=== PATIENT | female | born 1940 | race Caucasian/White ===

== ENCOUNTER 2016-10-12 18:47 | Emergency (ER) | payer BC ==
--- NOTE | 2016-10-12 20:39 | DIAGNOSTIC IMAGING REPORT ---
PROCEDURE: XR CHEST 2 VIEW INDICATION: Shortness of breath. Reported history of left lower lobe density or mass (documented). TECHNIQUE: PA and lateral views. COMPARISON: None. FINDINGS: Moderate parenchymal change at the left lung base which could be acute or chronic. Right lung is clear. Heart and mediastinum are normal. Mild dextroscoliosis and moderate degenerative change of the thoracic spine. IMPRESSION: 1. Moderate parenchymal change in the right lung base (acute versus chronic). 2. Otherwise negative chest.
--- NOTE | 2016-10-12 21:34 | ED CLINICAL REPORT ---
Clinical Report - Physicians/Mid Levels [facility] [address] [place] [address] 10/12/2016 18:47 Patient: FARTUN LORENZ Time Seen: 19:13. Arrived- By private vehicle. Historian- patient and family. HISTORY OF PRESENT ILLNESS Chief Complaint: DYSPNEA and BACK PAIN. This started today and is still present. It was gradual in onset and has been waxing/waning. The dyspnea is described as moderate. The dyspnea is worsened by cough and is improved by rest (deep breaths make pain worse). The patient has had a cough and chest pain (left flank area - none now, but complained of this earlier today). No sputum production, wheezing, calf pain or foot swelling. (Pt went to [facility] for c/o left flank pain and sob- clinic sent pt to r/o "blood clot" , pt has lunch cancer and has opted to not have treatment). Similar symptoms previously: Recent medical care: The patient was seen recently at another facility in the emergency department and office. ( Pt seen several weeks at [facility] for [place] - had CT head (neg)). REVIEW OF SYSTEMS The patient has had a hysterectomy. No sore throat, nasal discharge, sinus drainage, nausea or vomiting. No abdominal pain, diarrhea, black stools, bloody stools or headache. No difficulty with urination or skin rash. The patient has had joint pain (mild right buttock / hip area pain). All systems otherwise negative, except as recorded above. PAST HISTORY PROBLEMS: Contusion. Laceration. Head Injury. Fall. Uterine Cancer. Colon Cancer. Normal Pressure Hydrocephalus with cognitive impairment. Lung Cancer - metastatic adenocarcinoma. Hypertension. Hypothyroidism. Syncopal episodes. Prior rib fractures Hyperlipidemia Vit D deficiency Depression SURGERIES: Colon / colectomy Colonoscopy. Thyroid Surgery Hernia Hysterectomy with BSO. Medications: Unable to Obtain. Allergies: Penicillins. Tape. SOCIAL HISTORY Never smoker. Occasional alcohol use. No drug use. Residence: [facility] in [place]. FAMILY HISTORY Other family history (father with pancreatic cancer ()). ADDITIONAL NOTES The nursing notes have been reviewed. PHYSICAL EXAM Vital Signs: 10/12/2016 18:57 BP: 175/88. HR: 98. RR: 24. O2 saturation: 98%. Temp: 99.2 F. Pain level now: 10. Appearance: Alert. No acute distress. Eyes: Eyes normal inspection. No pale conjunctivae or scleral icterus. ENT: Pharynx normal. Uvula midline. Neck: Normal inspection. No jugular venous distention. Neck supple. CVS: Normal heart rate and rhythm. Heart sounds normal. Pulses normal. Respiratory: No respiratory distress. Mild rales in the left mid-lung. No decreased air movement, prolonged expiration, splinting or wheezes. Abdomen: Soft and nontender. No guarding or rebound tenderness. Back: Normal inspection. Skin: Skin warm and dry. Normal skin color. Normal skin turgor. Extremities: Extremities exhibit normal ROM. No calf tenderness. No lower extremity edema. Neuro: No motor deficit. LABS, X-RAYS, AND EKG EKG: EKG time: (19:27). Normal sinus rhythm. Rate: 100. Normal P waves. Normal DORINDA. Nondiagnostic Q waves in lead III. LVH. Non-specific ST segment / T wave abnormalities. The study has been interpreted contemporaneously by me. The EKG appears to be a good tracing. Rhythm Strip #1: Normal sinus rhythm. Regular rhythm. Narrow QRS complexes. No ectopy. Chest X-ray: Medium-sized, left-sided mass present. Consistent with tumor. Scoliosis present. No pneumothorax, pleural effusion or vascular congestion. Views: PA and lateral. Technique: good. The X-rays were interpreted contemporaneously by me. Laboratory Tests: UA-Culture if indicated: (TEE: 10/12/2016 19:50) ( MsgRcvd 10/12/2016 21:10) Final results Test Result Flag Units (Reference) URINE COLOR YELLOW URINE APPEARANCE CLEAR URINE GLUCOSE NEGATIVE (NEGATIVE) URINE BILIRUBIN NEGATIVE (NEGATIVE) URINE KETONE NEGATIVE (NEGATIVE) URINE SPECIFIC GRAVITY 1.020 (1.010-1.030) URINE PH 6.0 (5.0-8.0) URINE PROTEIN NEGATIVE (NEGATIVE) URINE UROBILINOGEN 0.2 EU/dL (0.2-1.0) URINE NITRITE NEGATIVE (NEGATIVE) URINE BLOOD NEGATIVE (NEGATIVE) URINE LEUK ESTERASE NEGATIVE (NEGATIVE) URINE RBC NONE SEEN rbc/hpf (0-1) URINE WBC 0-1 wbc/hpf (0-1) URINE EPITHELIAL CELLS 0-1 EPI/hpf (0-5) URINE BACTERIA NONE SEEN (NONE SEEN) URINE COMMENT CULT NOT INDICATED URINE CULTURES ARE SET-UP BASED ON THE FOLLOWING CRITERIA:POSITIVE NITRITEPOSITIVE LEUKOCYTE ESTERASEGREATER THAN 10 WHITE BLOOD CELLSMODERATE (2+) OR GREATER BACTERIA CBC w Diff: (TEE: 10/12/2016 19:50) ( [facility] 10/12/2016 20:12) Final results Test Result Flag Units (Reference) WHITE BLOOD COUNT 13.1 H K/uL (4.5-11.5) RED BLOOD COUNT 3.98 L M/uL (4.00-5.20) HEMOGLOBIN 12.2 gm/dL (12.0-16.0) HEMATOCRIT 37.0 % (36.0-46.0) MEAN CELL VOLUME 93 fL (80-100) MEAN CORPUSCULAR HGB 31 pg (26-34) MEAN CORPUSCULAR HGB CONC 33 g/dL (31-37) RED CELL DISTRIBUTION WIDTH 19.5 H % (11.6-14.8) PLATELET COUNT 276 K/uL (150-400) NEUTROPHIL % 81.7 H % (50-75) LYMPH % 11.9 L % (25-40) MONO % 5.1 % (3-14) EOSINOPHIL % 1.0 % (0-4) BASOPHIL % 0.3 % (0-2) PT with INR: (TEE: 10/12/2016 19:50) ( [facility] 10/12/2016 20:26) Final results Test Result Flag Units (Reference) INR 1.0 (0.8-1.2) Low Intensity Therapy: INR 1.5-2.0 PT range 18.5-23.1Mod.Intensity Therapy: INR 2.0-3.0 PT range 23.1-31.5High Intensity Therapy: INR 2.5-3.5 PT range 27.4-35.5High Intensity Therapy 2: INR 3.0-4.0 PT range 31.5-39.3 [id number]: (TEE: 10/12/2016 19:50) ( MsgRcvd 10/12/2016 20:47) Final results Test Result Flag Units (Reference) D-DIMER QUANTITATIVE 7.23 *H ug/mLFEU (0.27-0.52) CRITICAL RESULTS CALLEDCalled to DR. LUNA 10/12/162045Were 2 patient identifiers used? YWas the result read back? YThe primary value of this quantitative assay relates toits negative predictive value (i.e. exclusion) of pulmonaryembolism/deep vein thrombosis/DIC.Elevated levels of d-dimer may also occur with:, age, cancer, inflammation, liver disease,post-op, infection, hematoma, coronary disease, peripheralarteriopathy, bleeding disorders and thrombolytic treatment.Results should be correlated with other clinical andradiological data.Testing Methodology: Latex Immunoassay Urine Drug Screen: (TEE: 10/12/2016 19:50) ( MsgRcvd 10/12/2016 20:27) Final results Test Result Flag Units (Reference) AMPHETAMINE/METHAMPHETAMINE NEGATIVE (NEGATIVE) BARBITURATE NEGATIVE (NEGATIVE) BENZODIAZEPINE NEGATIVE (NEGATIVE) CANNABINOID NEGATIVE (NEGATIVE) COCAINE NEGATIVE (NEGATIVE) ECSTASY NEGATIVE (NEGATIVE) METHADONE NEGATIVE (NEGATIVE) OPIATE NEGATIVE (NEGATIVE) The urine drug screen is a qualitative screening test fordrug overdose and abuse. All screen results should beconsidered as presumptive.Drugs screened for are as follows:BenzodiazepinesCocaineAmphetamines/MetamphetaminesTHC (Tetrahydrocannabinol)OpiatesBarbituratesEcstasyMethadonePositive results are unconfirmed. For confirmation, notifythe lab for the specimen to be sent to the reference lab.All confirmations must be performed by a differentmethodology.The ingestion of natural herbal and plant productscontaining Ephedra/Ephedra metabolites can produce in urineone or more substances capable of cross reacting withamphetamine/methamphetamine immunoassays. These testsprovide a preliminary result only. A more specificalternative chemical method must be used to obtain aconfirmed analytical result. BNP: (TEE: 10/12/2016 19:50) ( [facility] 10/12/2016 20:35) Final results Test Result Flag Units (Reference) B-TYPE NATRIURETIC PEPTIDE 30.3 pg/ml (5-100) Lipase: (TEE: 10/12/2016 19:50) ( [facility] 10/12/2016 20:34) Final results Test Result Flag Units (Reference) LIPASE 97 U/L (73-393) AMYLASE 25 U/L (25-115) THYROID STIMULATING HORMONE 0.891 uIU/mL (0.30-3.74) CHEM 13 PANEL: (TEE: 10/12/2016 19:50) ( [facility] 10/12/2016 20:27) Final results Test Result Flag Units (Reference) GLUCOSE 152 H mg/dL (70-110) BUN 18 mg/dL (7-18) CREATININE 0.8 mg/dL (0.6-1.3) Estimated GFR >60 mL/min Estimated GFR- >60 mL/min Note: Persistent reduction over 3 months in eGFR<60 mL/min/1.73 m2 defines CKD. Patients with eGFR values>=60 mL/min/1.73 m2 may also have CKD if evidence ofpersistent proteinuria. Additional information may be foundat www.kidney.org. SODIUM 133 L mmol/L (136-145) POTASSIUM 4.4 mmol/L (3.5-5.1) CHLORIDE 102 mmol/L (98-107) CARBON DIOXIDE 31 mmol/L (21-32) CALCIUM 10.1 mg/dL (8.5-10.1) TOTAL PROTEIN 7.4 g/dL (6.4-8.2) ALBUMIN 3.6 g/dL (3.3-5.0) BILIRUBIN, TOTAL 0.4 mg/dL (0.0-1.0) ALKALINE PHOSPHATASE 126 H U/L (46-116) AST (SGOT) 35 U/L (15-37) ALT (SGPT) 19 U/L (12-78) MAGNESIUM 1.5 L mg/dL (1.8-2.4) CPK 40 U/L (24-260) TROPONIN I <0.05 L ng/mL (0.00-1.5) TROPONIN REFERENCE RANGE:<0.1 NEGATIVE0.1-1.5 INDETERMINANT>1.5 POSITIVE . Pulse Oximetry: 10/12/2016 18:57 O2 saturation: 98%. (FIO2 - room air). Interpretation: normal. PROGRESS AND PROCEDURES Course of Care: Pt has metastatic cancer and wishes palliative care only. After long discussion with family, we will hold CTPA as the result will not change our management - family does not want anticoagulants (prior bleeding from the tumor with hemoptysis) and frequent falls. She has been completely asymptomatic in the ED. [facility] the CXR today [facility], the lesion in the LLL is very likely unchanged. The elevated d-dimer is likely secondary to right thigh hematoma, chronic cancer and advanced age - although not completely ruled out, PE is less likely. She will likely have pain in the area of the tumor going forward. Patient/family counseled. Old ED records reviewed. (records from [facility] ED, [facility] ED / in patient and [facility] reviewed). Disposition: Discharged. Condition: stable and improved. CLINICAL IMPRESSION Chronic dementia (secondary to Normal Pressure Hydrocephalus). No behavioral disturbance. Metastatic, advanced left lower lobe lung cancer. Essential hypertension. Mild hypomagnesemia. Mild hyponatremia Contusion to the left thigh. INSTRUCTIONS Drink plenty of fluids. Warnings: Further evaluation is necessary. It is very important to follow up with a physician. CONTROLLED SUBSTANCE WARNINGS. GENERAL WARNINGS: Return or contact your physician immediately if your condition worsens or changes unexpectedly, if not improving as expected, or if other problems arise. Prescription Medications: Hydrocodone/APAP 5mg/325mg: take 1 to 2 orally every 6 hours as needed for pain. Dispense fifteen (15). No refills. Follow-up: Screening today revealed the patient's blood pressure to be in the hypertensive range. The patient should follow up with a primary care provider for blood pressure management. (Electronically signed by Artis Luna DO 10/13/2016 9:00)
--- NOTE | 2016-10-12 21:34 | ED CLINICAL REPORT ---
Clinical Report - Physicians/Mid Levels [facility] [address] [place] [address] 10/12/2016 18:47 Patient: FARTUN LORENZ Time Seen: 19:13. Arrived- By private vehicle. Historian- patient and family. HISTORY OF PRESENT ILLNESS Chief Complaint: DYSPNEA and BACK PAIN. This started today and is still present. It was gradual in onset and has been waxing/waning. The dyspnea is described as moderate. The dyspnea is worsened by cough and is improved by rest (deep breaths make pain worse). The patient has had a cough and chest pain (left flank area - none now, but complained of this earlier today). No sputum production, wheezing, calf pain or foot swelling. (Pt went to [facility] ([facility]) for c/o left flank pain and sob- clinic sent pt to r/o "blood clot" , pt has lunch cancer and has opted to not have treatment). Similar symptoms previously: Recent medical care: The patient was seen recently at another facility in the emergency department and office. ( Pt seen [place] weeks [place] [facility] [place] - had CT head (neg)). REVIEW OF SYSTEMS The patient has had a hysterectomy. No sore throat, nasal discharge, sinus drainage, nausea or vomiting. No abdominal pain, diarrhea, black stools, bloody stools or headache. No difficulty with urination or skin rash. The patient has had joint pain (mild right buttock / hip area pain). All systems otherwise negative, except as recorded above. PAST HISTORY PROBLEMS: Contusion. Laceration. Head Injury. Fall. Uterine Cancer. Colon Cancer. Normal Pressure Hydrocephalus with cognitive impairment. Lung Cancer - metastatic adenocarcinoma. Hypertension. Hypothyroidism. Syncopal episodes. Prior rib fractures Hyperlipidemia Vit D deficiency Depression SURGERIES: Colon / colectomy Colonoscopy. Thyroid Surgery Hernia Hysterectomy with BSO. Medications: Unable to Obtain. Allergies: Penicillins. Tape. SOCIAL HISTORY Never smoker. Occasional alcohol use. No drug use. Residence: [facility] in [place]. FAMILY HISTORY Other family history (father with pancreatic cancer ()). ADDITIONAL NOTES The nursing notes have been reviewed. PHYSICAL EXAM Vital Signs: 10/12/2016 18:57 BP: 175/88. HR: 98. RR: 24. O2 saturation: 98%. Temp: 99.2 F. Pain level now: 10. Appearance: Alert. No acute distress. Eyes: Eyes normal inspection. No pale conjunctivae or scleral icterus. ENT: Pharynx normal. Uvula midline. Neck: Normal inspection. No jugular venous distention. Neck supple. CVS: Normal heart rate and rhythm. Heart sounds normal. Pulses normal. Respiratory: No respiratory distress. Mild rales in the left mid-lung. No decreased air movement, prolonged expiration, splinting or wheezes. Abdomen: Soft and nontender. No guarding or rebound tenderness. Back: Normal inspection. Skin: Skin warm and dry. Normal skin color. Normal skin turgor. Extremities: Extremities exhibit normal ROM. No calf tenderness. No lower extremity edema. Neuro: No motor deficit. LABS, X-RAYS, AND EKG EKG: EKG time: (19:27). Normal sinus rhythm. Rate: 100. Normal P waves. Normal DORINDA. Nondiagnostic Q waves in lead III. LVH. Non-specific ST segment / T wave abnormalities. The study has been interpreted contemporaneously by me. The EKG appears to be a good tracing. Rhythm Strip #1: Normal sinus rhythm. Regular rhythm. Narrow QRS complexes. No ectopy. Chest X-ray: Medium-sized, left-sided mass present. Consistent with tumor. Scoliosis present. No pneumothorax, pleural effusion or vascular congestion. Views: PA and lateral. Technique: good. The X-rays were interpreted contemporaneously by me. Laboratory Tests: UA-Culture if indicated: (TEE: 10/12/2016 19:50) ( MsgRcvd 10/12/2016 21:10) Final results Test Result Flag Units (Reference) URINE COLOR YELLOW URINE APPEARANCE CLEAR URINE GLUCOSE NEGATIVE (NEGATIVE) URINE BILIRUBIN NEGATIVE (NEGATIVE) URINE KETONE NEGATIVE (NEGATIVE) URINE SPECIFIC GRAVITY 1.020 (1.010-1.030) URINE PH 6.0 (5.0-8.0) URINE PROTEIN NEGATIVE (NEGATIVE) URINE UROBILINOGEN 0.2 EU/dL (0.2-1.0) URINE NITRITE NEGATIVE (NEGATIVE) URINE BLOOD NEGATIVE (NEGATIVE) URINE LEUK ESTERASE NEGATIVE (NEGATIVE) URINE RBC NONE SEEN rbc/hpf (0-1) URINE WBC 0-1 wbc/hpf (0-1) URINE EPITHELIAL CELLS 0-1 EPI/hpf (0-5) URINE BACTERIA NONE SEEN (NONE SEEN) URINE COMMENT CULT NOT INDICATED URINE CULTURES ARE SET-UP BASED ON THE FOLLOWING CRITERIA:POSITIVE NITRITEPOSITIVE LEUKOCYTE ESTERASEGREATER THAN 10 WHITE BLOOD CELLSMODERATE (2+) OR GREATER BACTERIA CBC w Diff: (TEE: 10/12/2016 19:50) ( [facility] 10/12/2016 20:12) Final results Test Result Flag Units (Reference) WHITE BLOOD COUNT 13.1 H K/uL (4.5-11.5) RED BLOOD COUNT 3.98 L M/uL (4.00-5.20) HEMOGLOBIN 12.2 gm/dL (12.0-16.0) HEMATOCRIT 37.0 % (36.0-46.0) MEAN CELL VOLUME 93 fL (80-100) MEAN CORPUSCULAR HGB 31 pg (26-34) MEAN CORPUSCULAR HGB CONC 33 g/dL (31-37) RED CELL DISTRIBUTION WIDTH 19.5 H % (11.6-14.8) PLATELET COUNT 276 K/uL (150-400) NEUTROPHIL % 81.7 H % (50-75) LYMPH % 11.9 L % (25-40) MONO % 5.1 % (3-14) EOSINOPHIL % 1.0 % (0-4) BASOPHIL % 0.3 % (0-2) PT with INR: (TEE: 10/12/2016 19:50) ( [facility] 10/12/2016 20:26) Final results Test Result Flag Units (Reference) INR 1.0 (0.8-1.2) Low Intensity Therapy: INR 1.5-2.0 PT range 18.5-23.1Mod.Intensity Therapy: INR 2.0-3.0 PT range 23.1-31.5High Intensity Therapy: INR 2.5-3.5 PT range 27.4-35.5High Intensity Therapy 2: INR 3.0-4.0 PT range 31.5-39.3 [id number]: (TEE: 10/12/2016 19:50) ( MsgRcvd 10/12/2016 20:47) Final results Test Result Flag Units (Reference) D-DIMER QUANTITATIVE 7.23 *H ug/mLFEU (0.27-0.52) CRITICAL RESULTS CALLEDCalled to DR. LUNA 10/12/162045Were 2 patient identifiers used? YWas the result read back? YThe primary value of this quantitative assay relates toits negative predictive value (i.e. exclusion) of pulmonaryembolism/deep vein thrombosis/DIC.Elevated levels of d-dimer may also occur with:, age, cancer, inflammation, liver disease,post-op, infection, hematoma, coronary disease, peripheralarteriopathy, bleeding disorders and thrombolytic treatment.Results should be correlated with other clinical andradiological data.Testing Methodology: Latex Immunoassay Urine Drug Screen: (TEE: 10/12/2016 19:50) ( MsgRcvd 10/12/2016 20:27) Final results Test Result Flag Units (Reference) AMPHETAMINE/METHAMPHETAMINE NEGATIVE (NEGATIVE) BARBITURATE NEGATIVE (NEGATIVE) BENZODIAZEPINE NEGATIVE (NEGATIVE) CANNABINOID NEGATIVE (NEGATIVE) COCAINE NEGATIVE (NEGATIVE) ECSTASY NEGATIVE (NEGATIVE) METHADONE NEGATIVE (NEGATIVE) OPIATE NEGATIVE (NEGATIVE) The urine drug screen is a qualitative screening test fordrug overdose and abuse. All screen results should beconsidered as presumptive.Drugs screened for are as follows:BenzodiazepinesCocaineAmphetamines/MetamphetaminesTHC (Tetrahydrocannabinol)OpiatesBarbituratesEcstasyMethadonePositive results are unconfirmed. For confirmation, notifythe lab for the specimen to be sent to the reference lab.All confirmations must be performed by a differentmethodology.The ingestion of natural herbal and plant productscontaining Ephedra/Ephedra metabolites can produce in urineone or more substances capable of cross reacting withamphetamine/methamphetamine immunoassays. These testsprovide a preliminary result only. A more specificalternative chemical method must be used to obtain aconfirmed analytical result. BNP: (TEE: 10/12/2016 19:50) ( [facility] 10/12/2016 20:35) Final results Test Result Flag Units (Reference) B-TYPE NATRIURETIC PEPTIDE 30.3 pg/ml (5-100) Lipase: (TEE: 10/12/2016 19:50) ( [facility] 10/12/2016 20:34) Final results Test Result Flag Units (Reference) LIPASE 97 U/L (73-393) AMYLASE 25 U/L (25-115) THYROID STIMULATING HORMONE 0.891 uIU/mL (0.30-3.74) CHEM 13 PANEL: (TEE: 10/12/2016 19:50) ( [facility] 10/12/2016 20:27) Final results Test Result Flag Units (Reference) GLUCOSE 152 H mg/dL (70-110) BUN 18 mg/dL (7-18) CREATININE 0.8 mg/dL (0.6-1.3) Estimated GFR >60 mL/min Estimated GFR- >60 mL/min Note: Persistent reduction over 3 months in eGFR<60 mL/min/1.73 m2 defines CKD. Patients with eGFR values>=60 mL/min/1.73 m2 may also have CKD if evidence ofpersistent proteinuria. Additional information may be foundat [email or web address].org. SODIUM 133 L mmol/L (136-145) POTASSIUM 4.4 mmol/L (3.5-5.1) CHLORIDE 102 mmol/L (98-107) CARBON DIOXIDE 31 mmol/L (21-32) CALCIUM 10.1 mg/dL (8.5-10.1) TOTAL PROTEIN 7.4 g/dL (6.4-8.2) ALBUMIN 3.6 g/dL (3.3-5.0) BILIRUBIN, TOTAL 0.4 mg/dL (0.0-1.0) ALKALINE PHOSPHATASE 126 H U/L (46-116) AST (SGOT) 35 U/L (15-37) ALT (SGPT) 19 U/L (12-78) MAGNESIUM 1.5 L mg/dL (1.8-2.4) CPK 40 U/L (24-260) TROPONIN I <0.05 L ng/mL (0.00-1.5) TROPONIN REFERENCE RANGE:<0.1 NEGATIVE0.1-1.5 INDETERMINANT>1.5 POSITIVE . Pulse Oximetry: 10/12/2016 18:57 O2 saturation: 98%. (FIO2 - room air). Interpretation: normal. PROGRESS AND PROCEDURES Course of Care: Pt has metastatic cancer and wishes palliative care only. After long discussion with family, we will hold CTPA as the result will not change our management - family does not want anticoagulants (prior bleeding from the tumor with hemoptysis) and frequent falls. She has been completely asymptomatic in the ED. Comparing the CXR today [facility], the lesion in the LLL is very likely unchanged. The elevated d-dimer is likely secondary to right thigh hematoma, chronic cancer and advanced age - although not completely ruled out, PE is less likely. She will likely have pain in the area of the tumor going forward. Patient/family counseled. Old ED records reviewed. ([facility] from [facility], [facility] / in patient and [facility] reviewed). Disposition: Discharged. Condition: stable and improved. CLINICAL IMPRESSION Chronic dementia (secondary to Normal Pressure Hydrocephalus). No behavioral disturbance. Metastatic, advanced left lower lobe lung cancer. Essential hypertension. Mild hypomagnesemia. Mild hyponatremia Contusion to the left thigh. INSTRUCTIONS Drink plenty of fluids. Warnings: Further evaluation is necessary. It is very important to follow up with a physician. CONTROLLED SUBSTANCE WARNINGS. GENERAL WARNINGS: Return or contact your physician immediately if your condition worsens or changes unexpectedly, if not improving as expected, or if other problems arise. Prescription Medications: Hydrocodone/APAP 5mg/325mg: take 1 to 2 orally every 6 hours as needed for pain. Dispense fifteen (15). No refills. Follow-up: Screening today revealed the patient's blood pressure to be in the hypertensive range. The patient should follow up with a primary care provider for blood pressure management. (Electronically signed by Artis Luna DO 10/13/2016 9:00)
--- NOTE | 2016-10-12 21:34 | ED NURSING NOTES ---
Clinical Report - Nurses [facility] [address] [place] [address] 10/12/2016 18:47 Patient: FARTUN LORENZ TRIAGE Triage time 18:57 Oct 12 2016. Chief Complaint: SHORTNESS OF BREATH and DIFFICULTY BREATHING and COUGH (pt went to 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 Alert. No acute distress. SEPSIS SCREEN: Sepsis Screen. Infection suspected/documented. --19:08 Jonatan Elizabeth R.N. 18:57 10/12/16. BP: 175/88. HR: 98. RR: 24. O2 saturation: 98%. Temp: 99.2 F. Pain level now: 11/20. --19:08 Jonatan Elizabeth R.N. Weight: 81.6 kg stated. Height/Length: 64 inches Per Patient. BMI: 30.9. --18:58 Jonatan Elizabeth R.N. Medications Unable to Obtain. --19:05 Jonatan Elizabeth R.N. Allergies Penicillins. --19:04 Jonatan Elizabeth R.N. Tape. --19:04 Jonatan Elizabeth R.N. History Arrived by private vehicle. Historian: patient and family. Accompanied by family. The patient has had a cough and wheezing. 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 (pt took ibuprofen "this afternoon I think"). PAST MEDICAL HX: Immunizations: up-to-date. SOCIAL HX: Never smoker. Occasional alcohol use. No drug use. No infectious disease exposure. ABUSE ASSESSMENT: No report of abuse. SELF HARM ASSESSMENT: A self harm assessment was performed. The patient answered "no" to the question "Have you recently felt down, depressed, or hopeless?", "Have you noticed less interest or pleasure in doing things?", "Do you have thoughts of harming or killing yourself?", "Are you here because you tried to hurt yourself?", "Have you ever tried to hurt yourself before today?", "Have you recently had thoughts about harming or killing others?" and "Do you have any dangerous items in your possession?". NUTRITIONAL RISK ASSESSMENT: The nutritional risk assessment revealed no deficiencies. FALL RISK ASSESSMENT: Fall risk assessment completed. Risk factors identified include patient age greater than 65 years and impairment of mobility. Fall interventions initiated. Side rails up x2. Brakes on Bed in low position. Patient identified as a fall risk by ID band. Family at bedside. Call light in reach of patient. Instructed not to get up without assistance. FUNCTIONAL ASSESSMENT: Functional assessment performed: uses walker. SKIN INTEGRITY ASSESSMENT: Skin integrity risk assessment completed. No skin integrity risk identified. --19:08 Jonatan Elizabeth R.N. PROBLEMS: Contusion. Laceration. Head Injury. Fall. Uterine Cancer. Colon Cancer. Hydrocephalus. Lung Cancer. Hypertension. Hypothyroidism. --19: Jonatan Elizabeth R.N. ADDITIONAL SURGERIES: Colon. Thyroid Surgery. --19:05 Jonatan Elizabeth R.N. Interventions ID and allergy band on patient. --19:08 Jonatan Elizabeth R.N. PHYSICAL ASSESSMENT Ambulatory to room. Patient gowned. GENERAL / NEURO / PSYCH: Alert. Oriented X 4. Appears in no acute distress. HEENT: Mucous membranes are pink. RESPIRATORY: The patient can speak in full sentences. Nonproductive cough. Chest nontender. CVS: Capillary refill less than 2 seconds. SKIN: Skin is warm and dry. Normal skin turgor. --19: Jonatan Elizabeth R.N. NURSING PROGRESS NOTES Pulse oximeter and NIBP monitor placed on patient. Patient gowned. Reassurance given. Two patient identifiers checked. Call light placed in reach. Side rails up x 2. Bed placed in lowest position. Brakes of bed on. Patient ready for evaluation- chart flagged. Patient waiting for evaluation. --19: Jonatan Elizabeth R.N. EKG time: (1926). EKG was ordered, performed by a tech and shown to the ED physician. --19:30 Miguel Vazquez, ER Market Research Assistant 20:06 10/12/2016 Site #1 started via IV in the right antecubital space with an 20g angiocath; two attempts. Blood drawn: rainbow set. Labeled in the presence of the patient and sent to the lab. Saline lock flushed with saline. --20:21 Jonatan Elizabeth R.N. In/out catheterization. During procedure hand hygiene observed and sterile equipment and aseptic technique used. Return of yellow-colored cloudy urine. She tolerated procedure well. Two patient identifiers checked. Call light placed in reach. Side rails up x 2. Bed placed in lowest position. Brakes of bed on. --20:23 Jonatan Elizabeth R.N. 20:13 10/12/2016 Started bag #1 1000 mL IV Fluids IV NS (Saline); at 500 mL/hr via site #1 via IV pump. Allergies verified and confirmed 5 rights. IV patency established. IV site checked: no pain, redness, or swelling. IV flushed thoroughly pre- and post-medication administration. --20:24 Jonatan Elizabeth R.N. 20:38 10/12/16. ( Patient went to have scan done, pumped DC'd at that time and now restarted). --20:38 Fernanda Ryder R.N. 20:39 10/12/16. ( IV fluids reinitiated). --20:39 Fernanda Ryder R.N. 20:30 10/12/16. BP: 133/57 (regular adult cuff) taken on the left arm, via an automated monitor, while lying. HR: 92. RR: 16. O2 saturation: 100% on room air. Pain level now: 0/10. --20:48 Kathe Larsen R.N. Cardiac rhythm: normal sinus rhythm. strip cutting machine operator, pulse oximeter and NIBP monitor placed on patient. Reassurance given. Reassessment after fluids administered. She is calm and resting quietly. Overall patient status is the same- she states feels better. RESPIRATORY: Denies difficulty breathing. CVS: Denies chest pain. Cardiac rhythm: normal sinus rhythm. Two patient identifiers checked. Call light placed in reach. Side rails up. Bed placed in lowest position. Brakes of bed on. --20:48 Kathe Larsen R.N. ( family returned to pts room, MD notified. IV bolus complete, rated decreased to 250ml/hr as ordered.). --21:09 Jonatan Elizabeth R.N. 21:09 10/12/16. BP: 157/61. HR: 96. RR: 19. O2 saturation: 95%. Pain level now: 11/20. --21:10 Jonatan Elizabeth R.N. strip cutting machine operator, pulse oximeter and NIBP monitor placed on patient; cardiac/vascular sonographer- Lead II and V5; monitor alarms on (ongoing since presentation). Call light placed in reach. Side rails up x 2. Bed placed in lowest position. Brakes of bed on. --21:10 Jonatan Elizabeth R.N. 21:36 10/12/2016 IV Fluids IV NS Discontinued: STOPPED upon discharge. Total amount infused: 750 mL. IV patency established. IV site checked: no pain, redness, or swelling. IV flushed thoroughly. --21:36 Jonatan Elizabeth R.N. DISPOSITION / DISCHARGE Ability to learn limited by poor comprehension; teaching performed with the patient and family. Learning barriers note: dc instructions provided to son and daughter in law, opportunity to answer questions provided. Reviewed medication(s) side effects and dosing information. Prescription(s) given to the patient (rx given to daughter in law Margaret). Patient and family verbalized understanding. Written instructions provided in Kazakh. Verbalized understanding (son and daughter in law). The patient was discharged by the physician. She was discharged home and accompanied by family. She left the Emergency Department ambulatory, via private vehicle and (ambulatory using fww). Family member driving. --22:07 Jonatan Elizabeth R.N. 22:01 10/12/16. BP: 153/60. HR: 91. RR: 19. O2 saturation: 96%. Temp: 98.1 F. Pain level now: 09/20. --22:07 Jonatan Elizabeth R.N. Locked/Released at 10/12/2016 22:09 by Jonatan Elizabeth R.N.
--- NOTE | 2016-10-12 21:34 | ED NURSING NOTES ---
Clinical Report - Nurses [facility] [address] [place] [address] 10/12/2016 18:47 Patient: FARTUN LORENZ TRIAGE Triage time 18:57 Oct 12 2016. 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 Alert. No acute distress. SEPSIS SCREEN: Sepsis Screen. Infection suspected/documented. --19:08 Jonatan Elizabeth R.N. 18:57 10/12/16. BP: 175/88. HR: 98. RR: 24. O2 saturation: 98%. Temp: 99.2 F. Pain level now: 11/20. --19:08 Jonatan Elizabeth R.N. Weight: 81.6 kg stated. Height/Length: 64 inches Per Patient. BMI: 30.9. --18:58 Jonatan Elizabeth R.N. Medications Unable to Obtain. --19:05 Jonatan Elizabeth R.N. Allergies Penicillins. --19:04 Jonatan Elizabeth R.N. Tape. --19:04 Jonatan Elizabeth R.N. History Arrived by private vehicle. Historian: patient and family. Accompanied by family. The patient has had a cough and wheezing. 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 (pt took ibuprofen "this afternoon I think"). PAST MEDICAL HX: Immunizations: up-to-date. SOCIAL HX: Never smoker. Occasional alcohol use. No drug use. No infectious disease exposure. ABUSE ASSESSMENT: No report of abuse. SELF HARM ASSESSMENT: A self harm assessment was performed. The patient answered "no" to the question "Have you recently felt down, depressed, or hopeless?", "Have you noticed less interest or pleasure in doing things?", "Do you have thoughts of harming or killing yourself?", "Are you here because you tried to hurt yourself?", "Have you ever tried to hurt yourself before today?", "Have you recently had thoughts about harming or killing others?" and "Do you have any dangerous items in your possession?". NUTRITIONAL RISK ASSESSMENT: The nutritional risk assessment revealed no deficiencies. FALL RISK ASSESSMENT: Fall risk assessment completed. Risk factors identified include patient age greater than 65 years and impairment of mobility. Fall interventions initiated. Side rails up x2. Brakes on Bed in low position. Patient identified as a fall risk by ID band. Family at bedside. Call light in reach of patient. Instructed not to get up without assistance. FUNCTIONAL ASSESSMENT: Functional assessment performed: uses walker. SKIN INTEGRITY ASSESSMENT: Skin integrity risk assessment completed. No skin integrity risk identified. --19:08 Jonatan Elizabeth R.N. PROBLEMS: Contusion. Laceration. Head Injury. Fall. Uterine Cancer. Colon Cancer. Hydrocephalus. Lung Cancer. Hypertension. Hypothyroidism. --19: Jonatan Elizabeth R.N. ADDITIONAL SURGERIES: Colon. Thyroid Surgery. --19:05 Jonatan Elizabeth R.N. Interventions ID and allergy band on patient. --19:08 Jonatan Elizabeth R.N. PHYSICAL ASSESSMENT Ambulatory to room. Patient gowned. GENERAL / NEURO / PSYCH: Alert. Oriented X 4. Appears in no acute distress. HEENT: Mucous membranes are pink. RESPIRATORY: The patient can speak in full sentences. Nonproductive cough. Chest nontender. CVS: Capillary refill less than 2 seconds. SKIN: Skin is warm and dry. Normal skin turgor. --19: Jonatan Elizabeth R.N. NURSING PROGRESS NOTES Pulse oximeter and NIBP monitor placed on patient. Patient gowned. Reassurance given. Two patient identifiers checked. Call light placed in reach. Side rails up x 2. Bed placed in lowest position. Brakes of bed on. Patient ready for evaluation- chart flagged. Patient waiting for evaluation. --19: Jonatan Elizabeth R.N. EKG time: (1926). EKG was ordered, performed by a tech and shown to the ED physician. --19:30 Miguel Vazquez, ER Correspondence Section Supervisor 20:06 10/12/2016 Site #1 started via IV in the right antecubital space with an 20g angiocath; two attempts. Blood drawn: rainbow set. Labeled in the presence of the patient and sent to the lab. Saline lock flushed with saline. --20:21 Jonatan Elizabeth R.N. In/out catheterization. During procedure hand hygiene observed and sterile equipment and aseptic technique used. Return of yellow-colored cloudy urine. She tolerated procedure well. Two patient identifiers checked. Call light placed in reach. Side rails up x 2. Bed placed in lowest position. Brakes of bed on. --20:23 Jonatan Elizabeth R.N. 20:13 10/12/2016 Started bag #1 1000 mL IV Fluids IV NS (Saline); at 500 mL/hr via site #1 via IV pump. Allergies verified and confirmed 5 rights. IV patency established. IV site checked: no pain, redness, or swelling. IV flushed thoroughly pre- and post-medication administration. --20:24 Jonatan Elizabeth R.N. 20:38 10/12/16. ( Patient went to have scan done, pumped DC'd at that time and now restarted). --20:38 Fernanda Ryder R.N. 20:39 10/12/16. ( IV fluids reinitiated). --20:39 Fernanda Ryder R.N. 20:30 10/12/16. BP: 133/57 (regular adult cuff) taken on the left arm, via an automated monitor, while lying. HR: 92. RR: 16. O2 saturation: 100% on room air. Pain level now: 0/10. --20:48 Kathe Larsen R.N. Cardiac rhythm: normal sinus rhythm. desk monitor, pulse oximeter and NIBP monitor placed on patient. Reassurance given. Reassessment after fluids administered. She is calm and resting quietly. Overall patient status is the same- she states feels better. RESPIRATORY: Denies difficulty breathing. CVS: Denies chest pain. Cardiac rhythm: normal sinus rhythm. Two patient identifiers checked. Call light placed in reach. Side rails up. Bed placed in lowest position. Brakes of bed on. --20:48 Kathe Larsen R.N. ( family returned to pts room, MD notified. IV bolus complete, rated decreased to 250ml/hr as ordered.). --21:09 Jonatan Elizabeth R.N. 21:09 10/12/16. BP: 157/61. HR: 96. RR: 19. O2 saturation: 95%. Pain level now: 11/20. --21:10 Jonatan Elizabeth R.N. desk monitor, pulse oximeter and NIBP monitor placed on patient; surveillance system monitor- Lead II and V5; monitor alarms on (ongoing since presentation). Call light placed in reach. Side rails up x 2. Bed placed in lowest position. Brakes of bed on. --21:10 Jonatan Elizabeth R.N. 21:36 10/12/2016 IV Fluids IV NS Discontinued: STOPPED upon discharge. Total amount infused: 750 mL. IV patency established. IV site checked: no pain, redness, or swelling. IV flushed thoroughly. --21:36 Jonatan Elizabeth R.N. DISPOSITION / DISCHARGE Ability to learn limited by poor comprehension; teaching performed with the patient and family. Learning barriers note: dc instructions provided to son and daughter in law, opportunity to answer questions provided. Reviewed medication(s) side effects and dosing information. Prescription(s) given to the patient (rx given to daughter in law Margaret). Patient and family verbalized understanding. Written instructions provided in Kinyarwanda. Verbalized understanding (son and daughter in law). The patient was discharged by the physician. She was discharged home and accompanied by family. She left the Emergency Department ambulatory, via private vehicle and (ambulatory using fww). Family member driving. --22:07 Jonatan Elizabeth R.N. 22:01 10/12/16. BP: 153/60. HR: 91. RR: 19. O2 saturation: 96%. Temp: 98.1 F. Pain level now: 09/20. --22:07 Jonatan Elizabeth R.N. Locked/Released at 10/12/2016 22:09 by Jonatan Elizabeth R.N.
--- NOTE | 2016-10-12 21:34 | ED ORDER SUMMARY ---
..... Patient: FARTUN LORENZ OrderSheet [facility] VisitID: [id number] [address] [place] [address] 76y, F Registration Date/Time: 10/12/2016 ORDER SHEET Weight: 81.6 kg (stated) Allergies: Penicillins, Tape GENERAL ORDERS: Chest 2V Urgent (19:10/12/2016 [facility] DO) (Ack 19:21 Austinimana) (20:19 KPage-Kuchan R.N.) Warehouse Analyst (Continuous) (:10/12/2016 [facility] DO) (20:20 KPage-Kuchan R.N.) UA-Culture if indicated Urgent (:10/12/2016 [facility]) (Ack 19:20 Jordenekimana) (20:20 KPage-Kuchan R.N.) Cardiac Panel Stat (:10/12/2016 [facility]) (Ack 19:20 Jordenekimana) (20:20 KPage-Kuchan R.N.) BNP Urgent (19:10/12/2016 [facility] DO) (Ack 19:20 CHatponchoekimana) (20:20 KPage-Kuchan R.N.) D-Dimer Urgent (19:10/12/2016 [facility] DO) (Ack 19:20 Jordenekimana) (20:19 KPage-Kuchan R.N.) Amylase Urgent (19:10/12/2016 [facility] DO) (Ack 19:20 Jordenekimana) (20:19 KPage-Kuchan R.N.) Lipase Urgent ([facility] (Ack 19:20 Jordenekimana) (20:19 KPage-Kuchan R.N.) Urine Drug Screen Urgent (19:10/12/2016 [facility] DO) (Ack 19:20 Jordenekna) (20:19 KPage-Kuchan R.N.) TSH Urgent (19:10/12/2016 [facility] DO) (Ack 19:21 [facility] (20:19 KPage-Kucathyn R.N.) Pulse oximeter (19:16 10/12/2016 [facility]) (20:20 KPage-Kuchan R.N.) EKG - ER Stat (19:16 10/12/2016 [facility]) (Ack 19:20 [facility]) (19:28 CHagerty ER Instructor Of Nursing) Vitals (19:16 10/12/2016 [facility]) (19:54 JQuivey R.N.) Old Records (from [facility]) (19:23 10/12/2016 [facility]) (19:40 Angelia) PT with INR Urgent (19:34 10/12/2016 [facility]) (Ack 19:53 [facility] (20:20 KPage-Kuchan R.N.) MEDICATION ORDERS: IV FLUIDS: IV NS : initial bolus 500 mL (1000 mL/hr), then 250 mL/hr for X2 (NOW) (19:16 10/12/2016 [facility]) (20:24 KPage-Kuchan R.N.) ORDER SHEET NOTES: [Electronically signed by Jonatan Elizabeth R.N. (22:10/12/2016)] [Electronically signed by Artis Luna DO (09:00 10/13/2016)] [Electronically locked/signed by Jonatan Elizabeth R.N. (22:10/12/2016)]
--- NOTE | 2016-10-12 21:34 | ED ORDER SUMMARY ---
..... Patient: FARTUN LORENZ OrderSheet [facility] VisitID: [id number] [address] [place] [address] 76y, F Registration Date/Time: 10/12/2016 ORDER SHEET Weight: 81.6 kg (stated) Allergies: Penicillins, Tape GENERAL ORDERS: Chest 2V Urgent (19:10/12/2016 [facility] DO) (Ack 19:21 Austinimana) (20:19 KPage-Kuchan R.N.) Supervisor Shuttle Fitting (Continuous) (:10/12/2016 [facility] DO) (20:20 KPage-Kuchan R.N.) UA-Culture if indicated Urgent (:10/12/2016 [facility]) (Ack 19:20 Jordenekimana) (20:20 KPage-Kuchan R.N.) Cardiac Panel Stat (:10/12/2016 [facility]) (Ack 19:20 Jordenekimana) (20:20 KPage-Kuchan R.N.) BNP Urgent (19:10/12/2016 [facility] DO) (Ack 19:20 CHatponchoekimana) (20:20 KPage-Kuchan R.N.) D-Dimer Urgent (19:10/12/2016 [facility] DO) (Ack 19:20 Jordenekimana) (20:19 KPage-Kuchan R.N.) Amylase Urgent (19:10/12/2016 [facility] DO) (Ack 19:20 Jordenekimana) (20:19 KPage-Kuchan R.N.) Lipase Urgent (19:10/12/2016 [facility]) (Ack 19:20 Jordenekimana) (20:19 KPage-Kuchan R.N.) Urine Drug Screen Urgent (19:10/12/2016 [facility] DO) (Ack 19:20 Jordenekna) (20:19 KPage-Kuchan R.N.) TSH Urgent (19:10/12/2016 [facility] DO) (Ack 19:21 [facility] (20:19 KPage-Kucathyn R.N.) Pulse oximeter (19:16 10/12/2016 [facility]) (20:20 KPage-Kuchan R.N.) EKG - ER Stat (19:16 10/12/2016 [facility]) (Ack 19:20 [facility]) (19:28 CHagerty ER Incinerator Attendant) Vitals (19:16 10/12/2016 [facility]) (19:54 JQuivey R.N.) Old Records (from [facility]) (19:23 10/12/2016 [facility]) (19:40 Angelia) PT with INR Urgent (19:34 10/12/2016 [facility]) (Ack 19:53 [facility] (20:20 KPage-Kuchan R.N.) MEDICATION ORDERS: IV FLUIDS: IV NS : initial bolus 500 mL (1000 mL/hr), then 250 mL/hr for X2 (NOW) (19:16 10/12/2016 [facility]) (20:24 KPage-Kuchan R.N.) ORDER SHEET NOTES: [Electronically signed by Jonatan Elizabeth R.N. (22:10/12/2016)] [Electronically signed by Artis Luna DO (09:00 10/13/2016)] [Electronically locked/signed by Jonatan Elizabeth R.N. (22:10/12/2016)]
--- NOTE | 2016-10-13 09:01 | ED DISCHARGE INSTRUCTIONS ---
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 No behavioral disturbance. Metastatic, advanced left lower lobe lung cancer. Essential hypertension. Mild hypomagnesemia. Mild hyponatremia Contusion to the left thigh. INSTRUCTIONS Drink plenty of fluids. Warnings: Further evaluation is necessary. It is very important to follow up with a physician. CONTROLLED SUBSTANCE WARNINGS. GENERAL WARNINGS: Return or contact your physician immediately if your condition worsens or changes unexpectedly, if not improving as expected, or if other problems arise. Prescription Medications: Hydrocodone/APAP 5mg/325mg: take 1 to 2 orally every 6 hours as needed for pain. Dispense fifteen (15). No refills. Follow-up: Screening today revealed the patient's blood pressure to be in the hypertensive range. The patient should follow up with a primary care provider for blood pressure management. ADDITIONAL INFORMATION Hyponatremia Hyponatremia means low sodium levels in the blood. This condition most often occurs after prolonged vomiting or diarrhea. It can also result from the use of diuretics (water pills) or drinking excess amounts of water. Mild hyponatremia causes no symptoms. It is only discovered with a blood test. As sodium levels in the blood decreases, symptoms begin to appear. This includes weakness, confusion, muscle cramping and seizures. Home Care: 1) Reduce your daily water intake until the problem is corrected. 2) If you have been taking diuretics, you may be asked to stop taking them for a short time. 3) If you are having symptoms of weakness or confusion, do not drive or operate dangerous machinery until symptoms resolve. Follow Up with your doctor for a repeat blood test within the next week unless told otherwise. Get Prompt Medical Attention if any of the following occur: -- Increasing weakness -- Dizziness -- Irregular heartbeat, extra beats or very fast heart rate -- Fainting spell Contusion:Lower Extremity You have a CONTUSION of your LOWER extremity (leg, knee, ankle, foot, or toes). This causes local pain, swelling and sometimes bruising. There are no broken bones. This injury may take from a few days to a few weeks to heal. Home Care: 1) Keep your leg elevated to reduce pain and swelling. When sleeping, place a pillow under the injured leg. When sitting, support the injured leg so it is level with your waist. This is very important during the first 48 hours. 2) If CRUTCHES have been advised, do not bear full weight on the injured leg until you can do so without pain. You may return to sports when you are able to hop and run on the injured leg without pain. 3) Apply an ice pack (ice cubes in a plastic bag, wrapped in a towel) over the injured area for 20 minutes every 1-2 hours the first day for pain relief. Continue this 3-4 times a day until the pain and swelling goes away. 4) You may use acetaminophen (Tylenol) or ibuprofen (Motrin, Advil) to control pain, unless another pain medicine was prescribed. [ NOTE : If you have chronic liver or kidney disease or ever had a stomach ulcer or GI bleeding, talk with your doctor before using these medicines.] Follow Up with your doctor or this facility if you are not starting to improve within the next THREE days. [NOTE: If X-rays were taken, they will be reviewed by a radiologist. You will be notified of any new findings that may affect your care.] Get Prompt Medical Attention if any of the following occur: -- Pain or swelling increases -- Toes become cold, blue, numb or tingly -- Redness, warmth or drainage from the skin Hydrocodone Bitartrate, Acetaminophen Oral tablet What is this medicine? ACETAMINOPHEN; HYDROCODONE (a set a TRACI betty fen; matteo droe KOE done) is a pain reliever. It is used to treat mild to moderate pain. How should I use this medicine? Take this medicine by mouth. Swallow it with a full glass of water. Follow the directions on the prescription label. If the medicine upsets your stomach, take the medicine with food or milk. Do not take more than you are told to take. Talk to your check processor regarding the use of this medicine in children. This medicine is not approved for use in children. What side effects may I notice from receiving this medicine? Side effects that you should report to your doctor or health school child care attendant as soon as possible: allergic reactions like skin rash, itching or hives, swelling of the face, lips, or tongue breathing problems confusion feeling faint or lightheaded, falls stomach pain yellowing of the eyes or skin Side effects that usually do not require medical attention (report to your doctor or health school child care attendant if they continue or are bothersome): nausea, vomiting stomach upset What may interact with this medicine? alcohol antihistamines isoniazid medicines for depression, anxiety, or psychotic disturbances medicines for sleep muscle relaxants naltrexone narcotic medicines (opiates) for pain phenobarbital ritonavir tramadol What if I miss a dose? If you miss a dose, take it as soon as you can. If it is almost time for your next dose, take only that dose. Do not take double or extra doses. Where should I keep my medicine? Keep out of the reach of children. This medicine can be abused. Keep your medicine in a safe place to protect it from theft. Do not share this medicine with anyone. Selling or giving away this medicine is dangerous and against the law. Store at room temperature between 15 and 30 degrees C (59 and 86 degrees F). Protect from light. Keep container tightly closed. Throw away any unused medicine after the expiration date. Discard unused medicine and used packaging carefully. Pets and children can be harmed if they find used or lost packages. What should I tell my health care provider before I take this medicine? They need to know if you have any of these conditions: brain tumor Crohn's disease, inflammatory bowel disease, or ulcerative colitis drink more than 3 alcohol-containing drinks per day drug abuse or addiction head injury heart or circulation problems kidney disease or problems going to the bathroom liver disease lung disease, asthma, or breathing problems an unusual or allergic reaction to acetaminophen, hydrocodone, other opioid analgesics, other medicines, foods, dyes, or preservatives or trying to get breast-feeding What should I watch for while using this medicine? Tell your doctor or health school child care attendant if your pain does not go away, if it gets worse, or if you have new or a different type of pain. You may develop tolerance to the medicine. Tolerance means that you will need a higher dose of the medicine for pain relief. Tolerance is normal and is expected if you take the medicine for a long time. Do not suddenly stop taking your medicine because you may develop a severe reaction. Your body becomes used to the medicine. This does NOT mean you are addicted. Addiction is a behavior related to getting and using a drug for a non-medical reason. If you have pain, you have a medical reason to take pain medicine. Your doctor will tell you how much medicine to take. If your doctor wants you to stop the medicine, the dose will be slowly lowered over time to avoid any side effects. You may get drowsy or dizzy when you first start taking the medicine or change doses. Do not drive, use machinery, or do anything that may be dangerous until you know how the medicine affects you. Stand or sit up slowly. There are different types of narcotic medicines (opiates) for pain. If you take more than one type at the same time, you may have more side effects. Give your health care provider a list of all medicines you use. Your doctor will tell you how much medicine to take. Do not take more medicine than directed. Call emergency for help if you have problems breathing. The medicine will cause constipation. Try to have a bowel movement at least every 2 to 3 days. If you do not have a bowel movement for 3 days, call your doctor or health school child care attendant. Too much acetaminophen can be very dangerous. Do not take Tylenol (acetaminophen) or medicines that contain acetaminophen with this medicine. Many non-prescription medicines contain acetaminophen. Always read the labels carefully. You have been given the following additional information: Hyponatremia Contusion, Lower Extremity Hydrocodone Bitartrate, Acetaminophen Oral tablet (Electronically signed by Artis Luna DO 10/13/2016 9:00)
--- NOTE | 2016-10-13 09:01 | ED MAR SUMMARY ---
..... Medication Administration Record [facility] [address] [place] [address] Patient: FARTUN LORENZ Visit ID: [id number] 76y, F Weight: 81.6 kg Height/Length: 64 in BMI: 30.9 ALLERGIES: Tape, Penicillins Start 20:13 10/12/2016 Jonatan Elizabeth RJackson, Stop 21:36 10/12/2016 Jonatan Elizabeth RJackson Medication Administered: IV NS (SALINE), Dose: IV Fluids, Rate: 500 mL/hr, Dispensed: 1000 mL bag, Site: #1 right AC. Medication Ordered: IV NS : initial bolus 500 mL (1000 mL/hr), then 250 mL/hr for X2 (NOW).
--- NOTE | 2016-10-13 09:01 | ED MED RECONCILIATION SUMMARY ---
Patient: FARTUN LORENZ Medication Reconciliation Report [facility] VisitID: [id number] [address] [place] [address] 76y, F Registration Date/Time: 10/12/2016 Weight: 81.6 kg Height/Length: 64 in. BMI: 30.9 ALLERGIES: Penicillins, Tape The patient's Home Medications are listed below: Unable to obtain. The source(s) of the original Home Medication information: Not obtained. The following Medications were given to the patient in the Emergency Department: IV NS IV Fluids bolus 0, then 500 mL/hr, administered: 10/12/2016 8:13:00 PM The following Medications were prescribed to the patient: Hydrocodone/APAP 5mg/325mg: take 1 to 2 orally every 6 hours as needed for pain. Dispense fifteen (15). No refills. -- Artis Luna,
--- NOTE | 2016-10-13 09:01 | ED MAR SUMMARY ---
..... Medication Administration Record [facility] [address] [place] [address] Patient: FARTUN LORENZ Visit ID: [id number] 76y, F Weight: 81.6 kg Height/Length: 64 in BMI: 30.9 ALLERGIES: Tape, Penicillins Start 20:13 10/12/2016 Jonatan Elizabeth RJackson, Stop 21:36 10/12/2016 Jonatan Elizabeth RJackson Medication Administered: IV NS (SALINE), Dose: IV Fluids, Rate: 500 mL/hr, Dispensed: 1000 mL bag, Site: #1 right AC. Medication Ordered: IV NS : initial bolus 500 mL (1000 mL/hr), then 250 mL/hr for X2 (NOW).
--- NOTE | 2016-10-13 09:01 | ED MED RECONCILIATION SUMMARY ---
Patient: FARTUN LORENZ Medication Reconciliation Report [facility] VisitID: [id number] [address] [place] [address] 76y, F Registration Date/Time: 10/12/2016 Weight: 81.6 kg Height/Length: 64 in. BMI: 30.9 ALLERGIES: Penicillins, Tape The patient's Home Medications are listed below: Unable to obtain. The source(s) of the original Home Medication information: Not obtained. The following Medications were given to the patient in the Emergency Department: IV NS IV Fluids bolus 0, then 500 mL/hr, administered: 10/12/2016 8:13:00 PM The following Medications were prescribed to the patient: Hydrocodone/APAP 5mg/325mg: take 1 to 2 orally every 6 hours as needed for pain. Dispense fifteen (15). No refills. -- Artis Luna,
== END 2016-10-12 21:54 | disposition home or self-care (01) ==
LOC: ED SRH 18:47
DX: G91.2 (Idiopathic) normal pressure hydrocephalus (principal); F03.90 Unspecified dementia, unspecified severity, without behavioral disturbance, psychotic disturbance, mood disturbance, and anxiety; C34.32 Malignant neoplasm of lower lobe, left bronchus or lung; S70.11XA Contusion of right thigh, initial encounter; E83.42 Hypomagnesemia; E87.1 Hypo-osmolality and hyponatremia; I10 Essential (primary) hypertension; X58.XXXA Exposure to other specified factors, initial encounter
CPT/HCPCS: 90004; 90100; 90616; 91320; 91556; 92235; 92530; 92610; 92720; 92760; 92761; 92762; 92763; 92764; 92765; 92766; 92767; 93140; 94060; 95059